=== PATIENT | male | born 1965 | race Caucasian/White ===

== ENCOUNTER 2024-05-09 14:35 | Outpatient (OUT) | payer OTHER, SELFPAY | END 2024-05-09 14:36 | disposition home or self-care (01) | LOC: PST 14:35 | PROVIDERS: PCP Family Medicine; Visit Provider Surgery | DX: K62.5 Hemorrhage of anus and rectum (principal) ==

== ENCOUNTER 2024-05-29 08:32 | Day surgery (SDC) | payer OTHER, SELFPAY ==
--- NOTE | 2024-05-29 | OP_ITS ---
OPERATION DATE: 05/29/2024 PREOPERATIVE DIAGNOSIS: Rectal bleeding. POSTOPERATIVE DIAGNOSIS: Prominent rectal veins. PROCEDURE: Colonoscopy to cecum. SURGEON: Rogelio Comer M.D. ANESTHESIA: Monitored anesthesia care. ESTIMATED BLOOD LOSS: Zero. INDICATIONS AND CONSENT: Patient is a 58-year-old male with history of intermittent rectal bleeding. Indications, risks, benefits, alternatives of proceeding with colonoscopy were explained extensively to the patient, including the risks of bleeding, colon perforation or anesthetic complications. All of his questions were answered. Informed consent was obtained. PROCEDURE: Patient brought to the operating room, placed in the left lateral decubitus position. Monitored anesthesia care was provided. Rectal exam was performed which showed no masses or blood. The scope was inserted into the anal canal. Under direct visualization was advanced. It was advanced to the cecum where cecal markings were clearly identified. Upon withdrawal of the scope, mucosal surfaces were carefully examined. There were no mass lesions or polyps. No inflammatory changes or ulcerations. No significant diverticulosis. The scope was retroflexed in the anal canal. There were noted to be prominent rectal veins. No significant hemorrhoidal disease. The scope was then withdrawn. Patient tolerated procedure well, was sent to recovery room in good condition. f/u colonoscopy in 10 years. CC: Patient?s family physician JUAN ANTONIO
[2024-05-29 08:40] VITALS: BP 119/76; PULSE 69; TEMP 35.9; O2SAT 97; BMI 26.4
[2024-05-29] MEDS: 0.9 % SODIUM CHLORIDE 500 ML 50 ML IV (08:58)
[2024-05-29 10:40] VITALS: BP 105/63; PULSE 65; TEMP 36.5; O2SAT 95
[2024-05-29 10:55] VITALS: BP 120/72; PULSE 66; O2SAT 96
[2024-05-29 11:10] VITALS: BP 153/97; PULSE 64; TEMP 36.4; O2SAT 95
== END 2024-05-29 11:10 | disposition home or self-care (01) ==
PROVIDERS: PCP Family Medicine; Visit Provider Surgery
PROC: (CPT 811; principal; 2024-05-29 09:30)
DX: K62.5 Hemorrhage of anus and rectum (principal); F17.210 Nicotine dependence, cigarettes, uncomplicated; G47.33 Obstructive sleep apnea (adult) (pediatric)
CPT/HCPCS: 00811; 45378; J2704